=== PATIENT | male | born 1985 | race African-American/Black ===

== ENCOUNTER 2016-11-07 12:24 | Day surgery (SDC) | payer OTHER ==
--- NOTE | ~2016-11-07 | OP ---
Record Of Operation [facility] [address] [place]. [address] NAME: MIGUEL HERNANDEZ : 89 STATUS : [facility] UNIT#: [id number] AGE: 31 ADM/REG DATE : 11/07/16 MR#: [id number] REPORT SERV DATE: 11/07/16 DICTATED BY: FRANDY PORTER III DATE: 11/07/16 REPORT STATUS : Draft TRANSCRIBED BY: MODL DATE: 11/07/16 DATE OF PROCEDURE: 11/07/2016 PREOPERATIVE DIAGNOSIS: Penile lesions. POSTOPERATIVE DIAGNOSIS: Penile lesions. PROCEDURE: 1. Excisional biopsy of penile lesion. 2. CO2 laser ablation of second lesion. SURGEON: Frandy Porter M.D. ANESTHESIA: General. SPECIMEN: Penile lesion. INDICATION: Mr. Hernandez is a 31-year-old black male with two lesions at the base of the penis. They are consistent with condyloma acuminatum. Consent is obtained for excisional biopsy of the larger one and CO2 ablation of the small one. PROCEDURE IN DETAIL: After consent obtained, the patient was identified, and was taken to the OR and put to sleep. He was positioned in the supine position and prepped and draped in the usual fashion. Appropriate technique was used with CO2 laser. An excisional biopsy was performed of the larger lesion. This was passed off as specimen. The area of resection was cauterized, and the incision closed with a 4-0 chromic suture. The CO2 laser was then made ready and was used to ablate the other lesion. Triple antibiotic was applied. The patient was awakened and taken to recovery in stable condition. PH/MODL Frandy Porter III, M.D. / [id number] CC: Jacqui Romero III, III, D.O.
[~2016-11-07 12:24] MED LIST: ADVIL PO
== END 2016-11-07 17:04 | disposition home or self-care (01) ==
LOC: SDC 12:24
PROVIDERS: Urology
PROC: 0V5SXZZ Destruction of Penis, External Approach (ICD-10-PCS; 2016-11-07)
PROC: 0VBSXZX Excision of Penis, External Approach, Diagnostic (ICD-10-PCS; principal; 2016-11-07 14:00)
DX: N48.9 Disorder of penis, unspecified (principal); Z98.890 Other specified postprocedural states
CPT/HCPCS: 88305; A9270-GY; J0690; J2250; J2405; J3010